=== PATIENT | female | born 1980 | race Caucasian/White ===

== ENCOUNTER → 2017-02-22 | Outpatient (CLI) | payer OTHER ==
[~2017-02-22] MED LIST: AMOXICILLIN 8751 TAB PO; BACTRIM DS 8001 TAB PO; BIAXIN500 MG PO; LORTAB 5/500 501 TAB PO; MELATONIN3 M1 PO; NO HOME MEDICATIONS; TRAZODO50 MG PO; ZOLOFT100 MG PO
== END ==
LOC: COL.PUL 09:34
DX: R07.89 Other chest pain (principal); R06.02 Shortness of breath
CPT/HCPCS: J7674